=== PATIENT | female | born 1985 | race Two or more races ===

== ENCOUNTER → 2025-04-25 | Outpatient (CLI) | payer MEDICAID, SELFPAY ==
--- NOTE | 2025-04-25 10:03 | XR_ITS ---
Examination: Left os calcis 2 views TECHNIQUE: Lateral axial left os calcis 2 views Date and time: April 25, 2025, 1006 hours INDICATIONS: Heel pain 3 months. FINDINGS: 3 mm plantar bony calcaneal spur. No fracture. Mild osteoarthritis tibiotalar and subtalar joints IMPRESSION: 3 mm plantar bony calcaneal spur
== END | disposition home or self-care (01) ==
PROVIDERS: PCP Physician Assistant; Referring Provider Physician Assistant; Visit Provider Physician Assistant
DX: M77.32 Calcaneal spur, left foot (principal)
CPT/HCPCS: 73650